=== PATIENT | female | born 1980 | race Caucasian/White ===

== ENCOUNTER 2018-06-08 22:19 | Emergency (ER) | payer OTHER ==
[2018-06-08 23:13] VITALS: BP 114/66
[2018-06-08] MEDS ORDERED: PROPARACAINE HCL 0.5% OPTH OP ONE (23:24)
--- NOTE | 2018-06-08 23:42 | ED Physician Documentation ---
Eye Problem - HISTORIAN Historian: patient - HPI Stated Complaint: rt eye pain and swelling Chief Complaint: Eye Problems Additional Information: Woke with painful right eye this am. Removed her contacts. Says the eye felt better when her mother applied warm compresses. She has been rubbing the eye today. Vision is poor w/o contacts, but no different since pain began. No other treatment. No drainage or crusting. No known injury. No other modifying factors or associated signs. Associated symptoms: pain, burining - ROS CONST: no problems - PAST HX Past History: other (recovering addict) Allergies/Adverse Reactions: Allergies Allergy/AdvReac Type Severity Reaction Status Date / Time adhesive tape Allergy Verified 06/08/18 23:14 amoxicillin [Amoxicillin] Allergy Verified 06/08/18 23:14 codeine [Codeine] Allergy Verified 06/08/18 23:14 ketorolac tromethamine Allergy Verified 06/08/18 23:14 [From Toradol] latex [Latex] Allergy Verified 06/08/18 23:14 tramadol AdvReac Nausea/Vomi Verified 06/08/18 23:14 ting Home Medications: Ambulatory Orders Medication Instructions Recorded NK 12/24/15 - SOCIAL HX Smoking History: non-smoker Drug Use: other (above) - FAMILY HX Family History: no significant history - VITAL SIGNS Vital Signs: Vital Signs Temp Pulse Resp BP Pulse Ox 98.5 F 75 18 114/66 97 06/08/18 22:19 06/08/18 22:19 06/08/18 22:19 06/08/18 22:19 06/08/18 22:19 - REVIEWED ASSESSMENTS Nursing Assessment Reviewed: Yes Vitals Reviewed: Yes ED Results Lab/Radiology - Orders Orders: ED Orders Category Date Time Status Proparacaine HCl [Ophthaine] Med 06/08/18 23:24 Discontinued 2 drop OP NOW ONE Eye Problem Physical Exam - Physical Exam General Appearance: alert, moderate distress Eyelids: other (2-3 mm nodule under R upper lid. Conjumctival injection. Lids a bit puffy. ) Conjunctiva and Sclera: injected (R). No: exudate (R), foreign material (R), subconjunctival hemorrhage (R) Corneas: nml inspection, examined with fluorescein (R). No: fluorescein dye uptake (R) EOM: intact Pupils: equal Head/ENT: nml inspection Skin: nml color (except some pink about right eye) Respiratory: no resp distress CVS: other (no resp distress) Neuro/Psych: neuro intact, mood/affect nml Discharge Clincal Impression: Chalazion of right upper eyelid Referrals: Primary Doctor,No [Primary Care Provider] - 2 Days Condition: Good Disposition: 01 HOME, SELF-CARE Decision to Admit: NO Decision Time: 23:35
[2018-06-09] MEDS ORDERED: PROPARACAINE HCL 0.5% OPTH OP ONE (18:04)
== END 2018-06-08 23:25 | disposition home or self-care (01) ==
LOC: ED 22:19
DX: H00.11 Chalazion right upper eyelid (principal)
CPT/HCPCS: 99282

== ENCOUNTER 2018-06-25 21:34 | Emergency (ER) | payer OTHER ==
[2018-06-25] MEDS ORDERED: CEPHALEXIN 250 MG CAPSULE PO ONE (22:18)
[2018-06-25] MEDS ORDERED: GENTAMICIN SULFATE 0.3% OPTH SOL OP ONE (22:20)
[2018-06-25] MEDS ORDERED: PROPARACAINE HCL 0.5% OPTH OP ONE (22:20)
--- NOTE | 2018-06-25 22:24 | ED Physician Documentation ---
General Adult - HISTORIAN Historian: patient - HPI Stated Complaint: left red swollen eye Chief Complaint: General Adult Onset: hours Timing: still present Severity: moderate Further Comments: yes (Pt is a 38 yo female with c/o a stye in her L upper eyelid. Pt had similar problem in R eyelid not long ago. Sx started this am. Pt is unable to sleep due to irritation.) - ROS CONST: no problems EYES/ENT: other (pain, swelling under L eyelid) CVS/RESP: none GI/: none MS/SKIN/LYMPH: none - PAST HX Past History: other (appendectomy) Allergies/Adverse Reactions: Allergies Allergy/AdvReac Type Severity Reaction Status Date / Time adhesive tape Allergy Verified 06/08/18 23:14 amoxicillin [Amoxicillin] Allergy Verified 06/08/18 23:14 codeine [Codeine] Allergy Verified 06/08/18 23:14 ketorolac tromethamine Allergy Verified 06/08/18 23:14 [From Toradol] latex [Latex] Allergy Verified 06/08/18 23:14 tramadol AdvReac Nausea/Vomi Verified 06/08/18 23:14 ting Home Medications: Ambulatory Orders Medication Instructions Recorded NK 12/24/15 - SOCIAL HX Smoking History: cigarettes - FAMILY HX Family History: No - VITAL SIGNS Vital Signs: Vital Signs Temp Pulse Resp BP Pulse Ox 98.1 F 85 14 109/62 97 06/25/18 21:35 06/25/18 21:35 06/25/18 21:35 06/25/18 21:35 06/25/18 21:35 - REVIEWED ASSESSMENTS Nursing Assessment Reviewed: Yes Vitals Reviewed: Yes Progress - Progress Progress: Rx Keflex 500 mg. Take one every 8 hours for 7 to 10 days. Rx Gentamicin 0.3% ophthalmic drops. One or two drops in eye every 4 hours for 7 to 10 days. Follow up with spacer type bar and segment if symptoms persist or recur. ED Results Lab/Radiology - Orders Orders: ED Orders Category Date Time Status Cephalexin [Keflex] Med 06/25/18 22:18 Once 500 mg PO NOW ONE Gentamicin Sulfate [Gentak 0.3% Opth Yvette] Med 06/25/18 22:20 Once 2 drop OP NOW ONE Proparacaine HCl [Ophthaine] Med 06/25/18 22:20 Once 2 drop OP NOW ONE General Adult Physical Exam - PHYSICAL EXAM GENERAL APPEARANCE: mild distress EENT: other (Chalazion seen on eyelid inversion in mid upper eyelid) NECK: normal inspection, supple RESPIRATORY: no resp distress CVS: reg rate & rhythm, heart sounds normal SKIN: warm/dry, normal color EXTREMITIES: non-tender, normal range of motion, no evidence of injury NEURO: oriented X3, motor nml, sensation nml Discharge Clincal Impression: Chalazion left upper eyelid Referrals: Primary Doctor,No [Primary Care Provider] - Condition: Good Disposition: 01 HOME, SELF-CARE Decision to Admit: NO Decision Time: 22:58
[2018-06-25 23:20] VITALS: BP 118/64
== END 2018-06-25 22:55 | disposition home or self-care (01) ==
LOC: ED 21:34
DX: H00.16 Chalazion left eye, unspecified eyelid (principal)
CPT/HCPCS: 99283; A9270-GY

== ENCOUNTER 2018-07-30 16:04 | Emergency (ER) | payer OTHER ==
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
[2018-07-30] MEDS ORDERED: NALBUPHINE HCL 10 MG/1 ML IM ONE (17:15)
[2018-07-30] MEDS ORDERED: ORPHENADRINE CITRATE 60 MG/2ML IM ONE (17:15)
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
[2018-07-30 17:38] VITALS: BP 124/70
== END 2018-07-30 17:36 | disposition home or self-care (01) ==
LOC: ED 16:04
DX: S16.1XXA Strain of muscle, fascia and tendon at neck level, initial encounter (principal); M62.838 Other muscle spasm; V89.2XXA Person injured in unspecified motor-vehicle accident, traffic, initial encounter; Y92.9 Unspecified place or not applicable; Y93.9 Activity, unspecified; Y99.9 Unspecified external cause status
CPT/HCPCS: 72040; 73030; J2300; J2360; 96372; 99284

== ENCOUNTER 2018-08-26 13:49 | Emergency (ER) | payer OTHER ==
[2018-08-26] MEDS ORDERED: ORPHENADRINE CITRATE 60 MG/2ML IV ONE (14:16)
[2018-08-26] MEDS ORDERED: ONDANSETRON HCL/PF 4 MG/ 2ML VIAL IVP ONE (14:16)
[2018-08-26 15:01] VITALS: BP 105/63
--- NOTE | 2018-08-26 15:02 | ED Physician Documentation ---
Low Back Pain - HISTORIAN Historian: patient, spouse - HPI Stated Complaint: back pain Chief Complaint: Low Back Pain/ Injury Additional Information: sudden spontaneous thoraco lumbar back pain while sitting on the floor playing w / child-omset 1hr PT. NO PREV SIMILAR BUT HX LITHIASIS-PT STATES THIS NOT LIKE KIDNEY STONES. pain very sharp comes in intermittent spasms. rates 05/18 History: denies: history of chronic pain:, neck pain Duration: continues in ED Context: lifting, turning, bending, other (even deep breath) Where: home Other Injuries: back Severity: moderate Quality: sharp Associated Symptoms: nausea (very mild) Worsened By:: movement to RT flexion, movement to LT flexion, deep breaths - ROS CONST: no problems CVS/RESP: none EYES/ENT: none MS/SKIN/LYMPH: none Neuro/Psych: none GI/: denies: abdominal pain - PAST HX Past History: other (gu infections occ w/ sepsis estimates 20 prev stones-no susrgical removal-always pass on own. uti us assoc w/stones) Surgeries/Procedures: appendectomy, Allergies/Adverse Reactions: Allergies Allergy/AdvReac Type Severity Reaction Status Date / Time adhesive tape Allergy Verified 08/26/18 14:05 amoxicillin [Amoxicillin] Allergy Verified 08/26/18 14:05 codeine [Codeine] Allergy Verified 08/26/18 14:05 ketorolac tromethamine Allergy Verified 08/26/18 14:05 [From Toradol] latex [Latex] Allergy Verified 08/26/18 14:05 tramadol AdvReac Nausea/Vomi Verified 08/26/18 14:05 ting Home Medications: Ambulatory Orders Medication Instructions Recorded Orphenadrine Citrate [Norflex] 100 mg PO BID #20 tab 08/26/18 - SOCIAL HX Smoking History: less than 1 pack/day Alcohol Use: none (recovering meth habit 18 months) - FAMILY HX Family History: no significant history - VITAL SIGNS Vital Signs: Vital Signs Temp Pulse Resp BP Pulse Ox 98.0 F 83 16 95/54 96 08/26/18 14:09 08/26/18 14:09 08/26/18 14:09 08/26/18 14:09 08/26/18 14:09 - REVIEWED ASSESSMENTS Nursing Assessment Reviewed: Yes Vitals Reviewed: Yes ED Results Lab/Radiology - Lab Results Lab Results: Lab Results 08/26/18 14:35 Serum HCG, Qual Negative (NEGATIVE) - Orders Orders: ED Orders Category Date Time Status Place IV Lock 1T Care 08/26/18 14:18 Ordered SERUM HCG Routine Lab 08/26/18 Ordered URINALYSIS Routine Lab 08/26/18 Ordered Ondansetron HCl/Pf [Zofran 4 mg/2 ml] Med 08/26/18 14:16 Once 4 mg IVP NOW ONE Orphenadrine Citrate [Norflex] Med 08/26/18 14:16 Once 60 mg IV NOW ONE Low Back Pain/Injury - Physical Exam General Appearance: moderate distress EENT: eye inspection normal Neck: non-tender, painless ROM Resp/CVS: chest non-tender, breath sounds nml, heart sounds nml, no resp. distress, lungs clear, reg. rate & rhythm Abdomen: non-tender Back: CVA tenderness (only on lt at horaco lumbar area) Neuro/Psych: oriented x3, motor nml, sensation nml Skin: warm/dry, normal color. No: cyanosis, diaphoresis, jaundice, mottled, pallor Extremities: non-tender, normal range of motion (except mopvement us prod back spasm) Discharge Clincal Impression: acute spontaneous thoraco lumbar back Prescriptions: Orphenadrine Citrate [Norflex] 100 mg PO BID #20 tab Referrals: Primary Doctor,No [Primary Care Provider] - 2 Days Comments: pt sig improved wants go home w/ po norflex Condition: Good Disposition: 01 HOME, SELF-CARE Decision to Admit: NO Decision Time: 15:10
[2018-08-27 07:12] LABS: OCCULT BLOOD,URINE NEGATIVE (NEGATIVE); UROBILINOGEN URINE 0.2 Eu (0.2-1.0)
== END 2018-08-26 15:00 | disposition home or self-care (01) ==
LOC: ED 13:49
DX: M62.830 Muscle spasm of back (principal); M54.5 Low back pain; F17.200 Nicotine dependence, unspecified, uncomplicated; Z32.02 Encounter for pregnancy test, result negative
CPT/HCPCS: 81002; 84703; J2360; J2405; 96374; 96375; 99283; 99284; S1016

== ENCOUNTER 2019-01-02 15:25 | Emergency (ER) | payer OTHER ==
[2019-01-02 15:51] LABS: APPEARANCE,URINE CLOUDY (CLEAR); COLOR,URINE AMBER (YELLOW); OCCULT BLOOD,URINE NEGATIVE (NEGATIVE); PH URINE 6.5 (5.0 - 8.0); UROBILINOGEN URINE 0.2 Eu (0.2-1.0)
[2019-01-02 16:21] LABS: AMORPHOUS SEDIMENT,UR FEW (NEGATIVE)
--- NOTE | 2019-01-02 16:34 | ED Physician Documentation ---
Female Urogenital Problems - HISTORIAN Historian: patient - HPI Stated Complaint: bilateral flank pain Chief Complaint: Female Urogenital Problems Additional Information: Patient presents to ED with a 2 week history of bilateral flank pain and a 12 hour history of hematuria. Pateint reports history of frequent UTIs. She denies fever, chills, night sweats or abdominal pain. Onset: days ago (14) Severity: moderate Location of Pain: flank pain. denies: pelvic pain - Vaginal Bleeding Sexual History: active Contraceptive: none - Associated Symptoms Urinary Symptoms: blood in urine, frequent urination Discharge: denies: vaginal discharge - ROS CONST: denies: fever, chills GI/: denies: nausea, vomiting CVS/RESP: none EYES/ENT: none NEURO/PSYCH: denies: headache MS/SKIN/LYMPH: none - PAST HX Past History: none Other History: none Surgeries/Procedures: none Allergies/Adverse Reactions: Allergies Allergy/AdvReac Type Severity Reaction Status Date / Time adhesive tape Allergy Verified 01/02/19 16:11 amoxicillin [Amoxicillin] Allergy Verified 01/02/19 16:11 codeine [Codeine] Allergy Verified 01/02/19 16:11 ketorolac tromethamine Allergy Verified 01/02/19 16:11 [From Toradol] latex [Latex] Allergy Verified 01/02/19 16:11 tramadol AdvReac Nausea/Vomi Verified 01/02/19 16:11 ting Home Medications: Ambulatory Orders Medication Instructions Recorded Levofloxacin [Levaquin] 500 mg PO DAILY #7 tablet 01/02/19 - SOCIAL HX Smoking History: cigarettes, greater than 1 pack/day Alcohol Use: none Drug Use: none - FAMILY HX Family History: none - VITAL SIGNS Vital Signs: Vital Signs Temp Pulse Resp BP Pulse Ox 98.5 F 84 16 104/60 99 01/02/19 15:32 01/02/19 15:32 01/02/19 15:32 01/02/19 15:32 01/02/19 15:32 - REVIEWED ASSESSMENTS Nursing Assessment Reviewed: Yes Vitals Reviewed: Yes ED Results Lab/Radiology - Lab Results Lab Results: Lab Results 01/02/19 01/02/19 15:44 15:44 Urine Color Roxanne (YELLOW) Urine Appearance Cloudy H (CLEAR) Urine pH 6.5 (5.0 - 8.0) Ur Specific [place] >=1.030 H (1.010-1.030) Urine Protein Negative mg/dL mg/dL (NEGATIVE) Urine Ketones Negative mg/dL mg/dL (NEGATIVE) Urine Occult Blood Negative (NEGATIVE) Urine Nitrite Positive H (NEGATIVE) Urine Bilirubin Negative (NEGATIVE) Urine Urobilinogen 0.2 Eu Eu (0.2-1.0) Ur Leukocyte Esterase Negative (NEGATIVE) Urine RBC 0-2 (0-2 HPF) Urine WBC 0-2 (0-5 HPF) Ur Squamous Epith Cells Moderate H (NEG-FEW) Amorphous Sediment Few H (NEGATIVE) Urine Bacteria Many H (NEGATIVE) Urine Glucose Negative mg/dL mg/dL (NEGATIVE) - Orders Orders: ED Orders Category Date Time Status UA MACRO DIP ONLY Routine Lab 01/02/19 15:44 Completed URINE CULTURE Routine Lab 01/02/19 15:44 Received URINE HCG Stat Lab 01/02/19 Ordered Female Urogenital Problems - EXAM General Appearance: no acute distress, alert EENT: eye inspection normal Neck: No: lymphadenopathy Respiratory: no resp. distress, breath sounds nml CVS: reg rate & rhythm, heart sounds normal Abdomen: soft, non-tender, no distention. No: tenderness Back: CVA tenderness Skin: color nml, no rash, warm,dry Extremities: non-tender, no edema Neuro: oriented X3, CN's nml as tested, mood/affect nml Discharge Clincal Impression: Acute cystitis with hematuria Prescriptions: Levofloxacin [Levaquin] 500 mg PO DAILY #7 tablet Referrals: Primary Doctor,No [Primary Care Provider] - 2 Days Condition: Stable Disposition: 01 HOME, SELF-CARE Decision to Admit: NO Date of Decison to Admit: 01/02/19 Decision Time: 16:36
[2019-01-02 16:49] VITALS: BP 101/46
== END 2019-01-02 16:40 | disposition home or self-care (01) ==
LOC: ED 15:25
DX: N30.01 Acute cystitis with hematuria (principal); B96.20 Unspecified Escherichia coli [E. coli] as the cause of diseases classified elsewhere; Z16.35 Resistance to multiple antimicrobial drugs
CPT/HCPCS: 81002; 81025; 87086; 99283